=== PATIENT | female | born 1995 | race Caucasian/White ===

== ENCOUNTER 2017-03-31 12:24 | Inpatient (IN) | payer OTHER ==
[2017-03-31] MEDS ORDERED: OXYTOCIN/DEXTROSE 5%-WATER 30 UNITS/500 ML BAG IV ONE (14:10)
[2017-03-31] MEDS ORDERED: LIDOCAINE HCL 50 ML VIAL PERI PRN (14:10)
[2017-03-31] MEDS: RINGER'S SOLUTION,LACTATED 1,000 ML IV PRN ×2 (15:51→22:38)
[2017-03-31 16:10] LABS: Cocaine Ur Negative (NEGATIVE); Urine Barbiturate Negative (NEGATIVE); Urine Benzodiazepines Negative (NEGATIVE); Urine Opiates Negative (NEGATIVE); Urine PCP Negative (NEGATIVE); Urine THC Negative (NEGATIVE)
[2017-03-31] MEDS: MISOPROSTOL 100 MCG TABLET VG PRN ×2 (16:10→20:21)
[2017-03-31 19:16] LABS: Hematocrit 35.4 % (37.0-47.0); Hemoglobin 12.2 gm/dL (12.5-16.0); Mean Cell Volume 82.1 fl (78-100); Mean Corpuscular Hemoglobin 28.3 pg (27-31); Mean Corpuscular Hgb Conc 34.5 g/dl (32-36); Mean Platelet Volume 11.5 fl (6.0-9.5); Neutrophil # 7.2 K/mm3 (1.3-6.0); Neutrophil % 64.6 % (42-75.0); Platelet Count 170 K/mm3 (150-450); Red Blood Count 4.31 M/mm3 (4.2-5.4); Red Cell Distribution Width 15.4 % (11.5-14.0); White Blood Count 11.1 K/mm3 (4.0-10.5)
[2017-04-01] MEDS ORDERED: ONDANSETRON HCL/PF 2 MG/ML VIAL IV PRN (07:28)
[2017-04-01] MEDS ORDERED: NALOXONE HCL 1 MG/1 ML SYRG IV PRN (07:28)
[2017-04-01] MEDS ORDERED: BUPIVACAINE HCL/0.9 % NACL/PF 250 ML EP PRN (07:28)
[2017-04-01] MEDS ORDERED: fentaNYL CITRATE/PF 50 MCG/ML AMPUL IT SCH (07:30)
[2017-04-01] MEDS: RINGER'S SOLUTION,LACTATED 1,000 ML IV PRN ×2 (07:42→11:41)
--- NOTE | 2017-04-01 07:42 | PN ---
Subjective - Date and Time Seen Date: 04/01/17 Subjective Narrative: labor note 21 yo, at 39.4 w today. elective induction yesterday. dilated to 2 cm, 50% and -3 at admission. GBS negative. patient is in a lot of pain now. previously declined for epidural, but now agreed to have it. pitocin now at 6 mu/min. contraction: q2-3 min. Cerivx: 7 cm, 70% and -3. FHR: reassuring, 125s with early decels and accels. s/p cytotec 25 mcg x 1 pitocin started at 3 am this morning. SROM at 5;23 am and dilated to 4 cm FSE placed at the time. Plan: patient to get epidural. continue pitocin as tolerated. Kennedi Marcus MD Objective - Abnormal Lab Findings Abnormal Lab Findings: Abnormal Lab Results 03/31/17 Range/Units 19:10 WBC 11.1 H (4.0-10.5) K/mm3 Hgb 12.2 L (12.5-16.0) gm/dL Hct 35.4 L (37.0-47.0) % RDW 15.4 H (11.5-14.0) % MPV 11.5 H (6.0-9.5) fl Immature Gran % (Auto) 1.30 H (0.001-0.429) % Immature Gran # (Auto) 0.14 H (0.000-0.0310) K/mm3 Neutrophils # 7.2 H (1.3-6.0) K/mm3
--- NOTE | 2017-04-01 07:45 | OR ---
Anesthesia Pre Procedure Eval Date of Service: 04/01/17 Pre Procedure Evaluation: ANESTHESIA PROCEDURE NOTE Date of Procedure: 04/01/2017 Time of procedure: 07 40. Performed by: ELISABETH Lee CRNA, MSN [employer] Supervisor: Terri Ramírez RN. Preprocedure diagnosis: Active labor, labor pain. Post procedure diagnosis: Same. Procedure: Intrathecal narcotic for labor analgesia L34. Indications: Labor pain. Findings: See below. Details of the procedure: The patient was placed on the side of the bed in sitting positionand prepped with DuraPrep then draped in a sterile fashion. Lidocaine 1% was infiltrated to the skin and subcutaneous tissues at the level of the L3 4 interspace. A 24-gauge Pencan needle was inserted through an introducer until clear CSF contacted. After CSF returned, 50 mcg of fentanyl was injected along with 4 mg of bupivacaine after which the spinal needle was removed. EBL: Minimal. Fluids: N/A. Specimen: N/A. Post procedure condition: The patient tolerated the procedure well with good relief. No complications were noted. Thank you for this consultation. Dejuan Mari CRNA, ARNP, MSN Home Medications: HOME MEDICATIONS Vits96/Iron Fum/Folic [ S] 1 tab PO DAILY 01/10/16 [Last Taken 01/10/16 0900]
--- NOTE | 2017-04-01 08:14 | OR ---
Anesthesia Procedure Note - Anesthesia Procedure Note Date of Service: 04/01/17 Narrative: 04/01/17 08:09 Anesthesia Pre Procedure Evaluation Heart Rate: 105 Blood Pressure: 113/70 Temperature: 36.9 Respiratory Rate: 18 SaO2: 97 DATE: 04/01/2017 TIME: INDICATIONS: Active labor, labor pain PAST MEDICAL HISTORY: Multipara patient in active labor progressing quickly requesting labor analgesia History of GERD: No History of smoking: No History of sleep apnea: No EXAM: Heart clear; lungs regular ASSESSMENT OF MEDICAL STATUS: Appropriate candidate for labor analgesia PLANNED PROCEDURE: Labor interthecal for analgesia Please note this assessment was dictated after the insertion of the interthecal. The patient was quite animated and progressing relatively quickly so as to warrant the insertion of the interthecal prior to the official assessment.
[2017-04-01 09:02] LABS: Hematocrit 36.5 % (37.0-47.0); Hemoglobin 12.3 gm/dL (12.5-16.0); Mean Cell Volume 83.1 fl (78-100); Mean Corpuscular Hgb Conc 33.7 g/dl (32-36); Neutrophil % 77.3 % (42-75.0); Platelet Count 163 K/mm3 (150-450); Red Blood Count 4.39 M/mm3 (4.2-5.4); Red Cell Distribution Width 15.4 % (11.5-14.0); White Blood Count 12.9 K/mm3 (4.0-10.5)
[2017-04-01 09:14] LABS: Prothrombin Time (Patient) 9.2 Seconds (9.0-11.0)
[2017-04-01] MEDS ORDERED: CARBOPROST TROMETHAMINE 250 MCG/ML AMPUL IM ONE (09:23)
--- NOTE | 2017-04-01 09:32 | OR ---
Operative Report - Dictated Report Narrative: Spontaneous Vaginal Delivery Note: 21 yo, at 39.4 week, admitted for induction yesterday. dilated to 2 cm at admission. GBS was negative. Induced with cytotec 25 mcg per vagina x 1, and augmented with pitocin. SROM at 5;23 am this morning and cervix was 4 cm. scalp electrode placed at the time. Received intrathecal anesthesia for pain at 7 cm. Progressed to complete quickly. The perineum cleaned with betadine. Pushed with contractions. Head delivered with two pushes in OA over the perineum. Loose nuchal cord x 1 delivered through. The anterior shoulder delivered, followed by the posterior shoulder and the rest of the baby without difficulty. Baby cried at perineum. Baby placed on maternal abdomen for drying and care by the nursing. Cord was clamped at one minute of life and cut by father of baby. Cord blood was obtained. Placenta delivered intact with 3 vessel cord. Patient was gushing blood and bleeding profusely after placenta delivery. Bimanual massage was performed, but bleeding was still heavy. Pitocin drip was opened wide. One dose of methergine was given by IM and 800 mcg of cytotec was placed in the vagina. Bleeding had slowed down some, but still moderate flow. Low uterine segment appeared boggy, so two large lap pads were rolled up and inserted into the vagina to hold pressure. The lap pads were removed from the vagina after about 15-20 min. At that time, bleeding was minimal. Estimated blood loss was about 800 ml. CBC and coagulation profile sent. Exam of the perineum, vaginal and cervix revealed no laceration. Infant: female, 3414 grams, 7 lbs and 8.4 oz. 8/9. Time of delivery: 08: 28. Kennedi Marcus MD History for Definition: * The number of deliveries resulting in a live the patient experienced prior to current hospitalization * The previous delivery of live twins or any live multiple gestation is considered one live event. *If primagravida or nulliparous is documented select zero for the number of previous live births. Live Events: 2
[2017-04-01 09:33] LABS: INR 0.92 INR (0.90-1.10); Partial Thrombolplastin Time 28.6 Seconds (24-32)
[2017-04-01] MEDS ORDERED: MISOPROSTOL 100 MCG TABLET RC PRN (09:33)
[2017-04-01] MEDS ORDERED: METHYLERGONOVINE MALEATE 0.2 MG/ML AMPUL IM ONE (09:34)
[2017-04-01] MEDS ORDERED: GLYCERIN/WITCH HAZEL LEAF 40 APPL BOX TP PRN (10:03)
[2017-04-01] MEDS ORDERED: BISACODYL 10 MG SUPP.RECT RC PRN (10:03)
[2017-04-01] MEDS ORDERED: RINGER'S SOLUTION,LACTATED 1,000 ML IV PRN (10:03)
[2017-04-01] MEDS ORDERED: BENZOCAINE/MENTHOL 81 SPRAY CAN TP PRN (10:03)
[2017-04-01] MEDS ORDERED: HYDROCORTISONE 30 APPL TUBE TP PRN (10:03)
[2017-04-01] MEDS ORDERED: diphenhydrAMINE HCL 25 MG CAPSULE PO PRN (10:03)
[2017-04-01] MEDS ORDERED: SENNOSIDES 8.6 MG TABLET PO PRN (10:03)
[2017-04-01] MEDS: DOCUSATE SODIUM 100 MG CAPSULE PO SCH (20:17)
[2017-04-01] MEDS: IBUPROFEN 800 MG TABLET PO PRN (20:17)
[2017-04-01] MEDS: HYDROcodone/ACETAMINOPHEN 1 EACH TABLET PO PRN (21:43)
[2017-04-02] MEDS: HYDROcodone/ACETAMINOPHEN 1 EACH TABLET PO PRN ×5 (04:14→18:43)
[2017-04-02] MEDS: DOCUSATE SODIUM 100 MG CAPSULE PO SCH ×2 (09:50→21:33)
--- NOTE | 2017-04-02 13:31 | PN ---
Subjective - Date and Time Seen Date: 04/02/17 Subjective Narrative: day 1, s/p with hemorrhage immediately after , estimated to be 800 ml at the time. However, CBC post delivery showed hgb of 12.3, which was about the same prior to delivery at 12.2. Coagulation profile was normal. The blood loss at delivery may be overestimated. no complaints. lochia small bottle feeding. ambulating well. Objective - Vitals Vitals: Last Vital Signs Temp 36.6 C 04/02/17 07:31 Pulse 65 04/02/17 07:31 Resp 16 04/02/17 07:31 BP 120/67 04/02/17 07:31 Pulse Ox 99 04/02/17 01:00 - Exam Constitutional: Present: Alert, Oriented x3, Cooperative Respiratory: Present: no respiratory distress Cardiovascular/Chest: Present: normal peripheral pulses Abdomen: Present: soft, nontender, nondistended, other - fundus firm at umbilicus, non-tender Extremity: Present: normal range of motion, no pedal edema, no calf tenderness Skin Exam: Present: normal color, warm/dry, no cyanosis Appearance: Present: appropriate appearance Eye contact: Present: cooperative, good eye contact, normal speech Assessment/Plan Plan Narrative: A: day 1, s/p stable and well. Plan: routine care. Kennedi Marcus MD
[2017-04-03] MEDS: HYDROcodone/ACETAMINOPHEN 1 EACH TABLET PO PRN ×2 (04:07→09:04)
[2017-04-03] MEDS: IBUPROFEN 800 MG TABLET PO PRN (04:07)
[2017-04-03 07:49] VITALS: BP 113/67
[2017-04-03] MEDS: DOCUSATE SODIUM 100 MG CAPSULE PO SCH (09:04)
--- NOTE | 2017-04-03 11:33 | PN ---
Subjective - Date and Time Seen Date: 04/03/17 Subjective Narrative: day 2, s/p doing well. no complaints. bottle feeding. normal lochia. ambulating well. Objective - Vitals Vitals: Last Vital Signs Temp 36.3 C L 04/03/17 07:48 Pulse 80 04/03/17 07:48 Resp 18 04/03/17 07:48 BP 113/67 04/03/17 07:48 Pulse Ox 98 04/03/17 07:48 - Exam Constitutional: Present: Alert, Oriented x3, Cooperative Respiratory: Present: no respiratory distress Cardiovascular/Chest: Present: normal peripheral pulses Abdomen: Present: soft, nontender, nondistended, other - fundus firm and below umbilicus Extremity: Present: normal range of motion, no pedal edema, no calf tenderness Skin Exam: Present: normal color, warm/dry, no cyanosis Appearance: Present: appropriate appearance Eye contact: Present: cooperative, good eye contact, normal speech Assessment/Plan Plan Narrative: A: PPD#2, s/p stable and well. Plan: will discharge patient home. Kennedi Marcus MD
== END 2017-04-03 13:15 | disposition home or self-care (01) | DRG 774 ==
LOC: OB 15:00
PROVIDERS: ADMIT Obstetrics & Gynecology; ATTEND Obstetrics & Gynecology
PROC: 10E0XZZ Delivery of Products of Conception, External Approach (ICD-10-PCS; principal; 2017-04-01)
PROC: 4A1H7CZ Monitoring of Products of Conception, Cardiac Rate, Via Natural or Artificial Opening (ICD-10-PCS; 2017-04-01)
PROC: 00HU33Z Insertion of Infusion Device into Spinal Canal, Percutaneous Approach (ICD-10-PCS; 2017-04-01)
DX: O69.81X0 Labor and delivery complicated by cord around neck, without compression, not applicable or unspecified (principal); O67.8 Other intrapartum hemorrhage; O72.1 Other immediate postpartum hemorrhage; O99.334 Smoking (tobacco) complicating childbirth; Z3A.39 39 weeks gestation of pregnancy; Z37.0 Single live birth